=== PATIENT | female | born 1990 | race Hispanic/Latino ===

== ENCOUNTER 2024-06-20 23:50 | Emergency (ER) | payer SELFPAY ==
[2024-06-20 23:54] VITALS: BP 143/63; PULSE 146; RESP 24; TEMP 37.3; O2SAT 100; BMI 25.8
--- NOTE | 2024-06-20 23:56 | DI.RAD.S_ITS ---
PROCEDURE: XR SOFT TISSUE NECK INDICATIONS: swallowed something and feels stuck TECHNIQUE: 2 views of the neck were acquired. COMPARISON: None. FINDINGS: Airway: The airway appears patent. Soft tissues: Prevertebral soft tissues are normal in thickness. The epiglottis and aryepiglottic folds appear normal. No soft tissue gas. Bones: No suspicious bony lesions. Visualized cervical spine is normally aligned. IMPRESSION: No radiopaque foreign bodies peer No acute abnormality. Dictated by: Jules Plunkett M.D. on 06/21/2024 at 0:26 Approved by: Jules Plunkett M.D. on 06/21/2024 at 0:26
--- NOTE | 2024-06-20 23:59 | ED.SOB ---
HPI - SOB/Dyspnea General Chief Complaint: Skin/Abscess/Foreign Body Stated Complaint: something stuck in throat Time Seen by Provider: 06/20/24 23:56 Source: old records reviewed Mode of arrival: Family Vehicle Limitations: no limitations History of Present Illness HPI Narrative: 33-year-old female with no reported medical issues presents with complaint having something stuck in her throat patient states she was eating potato chips leaning forward she felt like it got stuck and that it is stuck sideways. Patient states that she has not had any improvement but it has not worsening over the past 30 minutes. She states no changes to voice, states she has not hoarse. No stridor. She appears quite uncomfortable. She has not had any vomiting. She states she has not had similar symptoms in the past. She does not have any other rash skin changes or other changes that she is appreciated. She states she ate and drank and was able to do that without issue. She states no daily medications, states she had prior tonsils surgeries in the past. Denies any drug allergies but states she was very sensitive to narcotics. She does use a dab pen for tobacco, denies any regular alcohol, denies any recreational drugs. Related Data Allergies Allergy/AdvReac Type Severity Reaction Status Date / Time No Known Drug Allergies Allergy Verified 06/21/24 00:08 Review of Systems Review of Systems ROS Unobtainable: All systems reviewed & are unremarkable except as noted in HPI and below Patient History Social History Smoking Status: Current every day smoker Exam Narrative Exam Narrative: GEN: Well nourished female in moderate distress. HEENT: Atraumatic, pupils are equal round reactive to light, extraocular movements are intact, nares are clear, TMs are clear with no fluid, there is no conjunctival pallor. Throat is clear without any exudates, erythema, tonsillar enlargement or uvular deviation, patient appears uncomfortable, does have some retractions of the SCM but is able to speak in full sentences. No stridor, patient is found and a little hoarse to myself but she states this is her normal voice. No drooling, patient is able to tolerate secretions. No swelling of oropharynx. HEART: Regular rate and rhythm without murmur, clicks, rubs. Pulses are equal in upper and lower extremities LUNGS:Lungs clear to auscultation, no wheezes, rales, crackles, chest moves symmetrically ABD:bowel sounds normal, soft, non-tender, no guarding, rebound, rigidity, no masses noted, no hepatosplenomegaly MSCL: Non-tender, full range of motion, normal gait NEURO:CN 2-12 intact, sensation normal. SKIN: Rash, erythema, no hives. Initial Vital Signs Initial Vital Signs: Vital Signs Temperature 99.1 F 06/20/24 23:54 Pulse Rate 146 H 06/20/24 23:54 Respiratory Rate 24 06/20/24 23:54 Blood Pressure 143/63 H 06/20/24 23:54 Pulse Oximetry 100 06/20/24 23:54 Oxygen Delivery Method Room Air 06/20/24 23:54 Course Orders Ordered: ED Orders 06/20/24 23:56 XR soft tissue neck Stat Discontinued Medications Lidocaine HCl (Lidocaine 2% Inj Sdv 5ml) 5 ml INH NOW ONE Stop: 06/21/24 00:01 Last Admin: 06/21/24 00:52 Dose: 5 ml Documented By: THELMA Vital Signs Vital signs: Vital Signs - 8 hr 06/20/24 23:54 06/21/24 00:11 06/21/24 01:28 Temperature 99.1 F 98.0 F Pulse Rate 146 H 98 H 81 Respiratory Rate 24 20 20 Blood Pressure 143/63 H 142/81 H Pulse Oximetry 100 100 100 Oxygen Delivery Method Room Air Room Air Room Air Fraction of Inspired Oxygen 21 MDM - SOB/Dyspnea Imaging Data soft tissue neck: Radiologist's Impression: Nallely Cowan??33??F??1990 ? Allergy/Adv: No Known Drug Allergies (More??) Close Soft Tissue Neck X-Ray (Signed) Jules Plunkett - 06/20/24 Launch?[address] [address] XRay Report Signed Patient: Nallely Cowan MR#: [id number] : 1990 Acct:[id number] Age/Sex: 33 / F Date of Service: 06/20/24 Loc: ED Accession Number: [id number] Procedure: XR soft tissue neck Ordering Provider: Mank,Arpita C D.O. PROCEDURE: XR SOFT TISSUE NECK INDICATIONS: swallowed something and feels stuck TECHNIQUE: 2 views of the neck were acquired. COMPARISON: None. FINDINGS: Airway: The airway appears patent. Soft tissues: Prevertebral soft tissues are normal in thickness. The epiglottis and aryepiglottic folds appear normal. No soft tissue gas. Bones: No suspicious bony lesions. Visualized cervical spine is normally aligned. IMPRESSION: No radiopaque foreign bodies peer No acute abnormality. Dictated by: Jules Plunkett M.D. on 06/21/2024 at 0:26 Approved by: Jules Plunkett M.D. on 06/21/2024 at 0:26 MDM Narrative Medical decision making narrative: 33-year-old female states she feels like something got stuck in her throat she states it feels like it is stuck sideways she was requesting Heimlich but is has a patent airway is able to talk, is able to handle her secretions. She states it has not been worsening since it started it started while eating potato chips and she feels like 1 is stuck. Patient is refusing an IV. We will try 1 single dose of nebulized lidocaine. Patient states it is painful. Patient had 1 dose of nebulized lidocaine, states that does help her symptoms. Patient asked if she can do some nasal saline. She did this she states that is seems like it was very helpful. She feels much more comfortable she was able to lay flat on the bed. Soft tissue neck x-ray shows no acute change. On rechecked patient continues to feel much and feels comfortable her breathing has normalized, she does not have any stridor, no wheezing no changes to voice, no difficulty with swallowing secretions she was able to lay flat and on her side and even sit up bent over without any issues. Discharge Plan Departure Patient Disposition: Home Clinical Impression: Globus sensation Activity Restrictions/Additional Instructions: Please follow up for recheck as needed. You may have some irritation in your throat over the next day or so this should continue to improve. If you have new or worsening difficulty breathing, changes to your voice, hoarseness, stridor or high-pitched wheezing, inability to swallow your saliva or secretions or other new or concerning changes please return to the emergency department. Stand Alone Forms: Patient Portal/API
[2024-06-21 00:11] VITALS: PULSE 98; RESP 20; O2SAT 100
[2024-06-21] MEDS: LIDOCAINE 2% INJ SDV 5ML 5 ML INH (00:52)
[2024-06-21 01:28] VITALS: BP 142/81; PULSE 81; RESP 20; TEMP 36.7; O2SAT 100
== END 2024-06-21 01:31 | disposition home or self-care (01) ==
PROVIDERS: Emergency Provider Emergency Medicine
DX: R09.A2 Foreign body sensation, throat (principal)
CPT/HCPCS: 70360; 93010; 94640; 99283

== ENCOUNTER 2024-06-21 13:34 | Emergency (ER) | payer SELFPAY ==
[2024-06-21] VITALS (14 sets, daily range): BP systolic 103–132; BP diastolic 55–80; PULSE 51–127; RESP 12–36; TEMP 37.7; O2SAT 85–100
--- NOTE | 2024-06-21 13:41 | EKG_ITS ---
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
--- NOTE | 2024-06-21 13:41 | DI.RAD.S_ITS ---
PROCEDURE: XR CHEST 1V INDICATIONS: SHORTNESS OF BREATH TECHNIQUE: One view of the chest was acquired. COMPARISON: None. FINDINGS: Surgical changes and devices: None. Lungs and pleura: Lungs are clear. No pleural effusions or pneumothorax. Mediastinum: Mediastinal contours appear normal. Heart size is normal. Bones and chest wall: No suspicious bony lesions. Overlying soft tissues appear unremarkable. IMPRESSION: No acute cardiopulmonary abnormality is seen. Dictated by: Jose Givens M.D. on 06/21/2024 at 14:03 Approved by: Jose Givens M.D. on 06/21/2024 at 14:03
--- NOTE | 2024-06-21 13:44 | ED_ITS ---
HPI - SOB/Dyspnea General Chief Complaint: Upper Respiratory Symptoms Stated Complaint: can't breathe Time Seen by Provider: 06/21/24 13:40 History of Present Illness HPI Narrative: 33-year-old female seen here last night with throat foreign body sensation, no specific diagnosis recalled by patient, says that she ?can not breathe? seemed to be in respiratory distress, no swelling to eyelids or tongue or face, no itching or rash or hives, no wheezing, no chest pain. Last night possible concern about throat pain related to corn chip FB sensation. Related Data Allergies Allergy/AdvReac Type Severity Reaction Status Date / Time No Known Drug Allergies Allergy Verified 06/21/24 13:49 Review of Systems Review of Systems Narrative: see HPI Patient History Social History Smoking Status: Current every day smoker Smoking Status: Current every day smoker tobacco type: vaping alcohol intake frequency: other Substance Use Type: does not use Exam Narrative Exam Narrative: GENERAL: Well-developed patient, in respiratory distress with stridor. HEAD: Atraumatic. Normocephalic. Tends to turn her neck to the right side, but when directly asked questions is able to move in the midline of the left side with no problems, returns to right-sided position when not directly examined or queried. EYES: Pupils equal round and reactive. Extraocular motions intact. No scleral icterus. No injection or drainage. ENT: Nose without bleeding, purulent drainage. Throat without erythema, tonsillar hypertrophy or exudate. Airway patent. NECK: Trachea midline. Non tender. No anterior neck lesions. Moves neck side to side, no drool, no trismus. CARDIOVASCULAR: Regular rate and rhythm without murmurs, gallops, or rubs. RESPIRATORY: Some stridorous breathing, respiratory distress. Clear to auscultation. Breath sounds equal bilaterally. No wheezes, rales, or rhonchi. GASTROINTESTINAL: Abdomen soft, non-tender, nondistended. EXTREMITIES: No edema or joint tenderness. BACK: Nontender without deformity or crepitance. No flank tenderness. NEURO: AOx3. Motor functions grossly nonfocal SKIN: No rash or erythema of visible areas Initial Vital Signs Initial Vital Signs: Vital Signs Pulse Rate 127 H 06/21/24 13:42 Pulse Oximetry 97 06/21/24 13:42 Course Orders Ordered: ED Orders 06/21/24 13:41 XR chest 1V Stat Complete Blood Count AUTO DIFF Stat Comprehensive Metabolic Panel Stat Lipase Stat Troponin & CK Cardiac Panel Stat EKG-12 Lead Stat 06/21/24 14:25 Urine Culture Stat Urine Microscopic Stat urine tox [Urine Drug Screen, Rapid] Stat Discontinued Medications Albuterol (Albuterol 2.5 Mg/3 Ml Neb (Adult)) 2.5 mg INH NOW ONE Stop: 06/21/24 13:42 Last Admin: 06/21/24 14:51 Dose: Not Given Documented By: WILVER Aspirin (Aspirin 81 Mg Chew Tab) 324 mg PO NOW ONE Stop: 06/21/24 13:41 Last Admin: 06/21/24 14:51 Dose: Not Given Documented By: WILVER Dexamethasone (Dexamethasone 10 Mg/Ml Vial) 10 mg IM NOW ONE Stop: 06/21/24 14:12 Last Admin: 06/21/24 14:56 Dose: Not Given Documented By: WILVER Epinephrine (Racepinephrine 0.5 Ml Neb) 0.5 ml INH NOW ONE Stop: 06/21/24 14:12 Last Admin: 06/21/24 14:57 Dose: Not Given Documented By: WILVER Sodium Chloride (Normal Saline 0.9%) 1,000 mls @ 150 mls/hr IV CONT NASIMA Last Admin: 06/21/24 14:52 Dose: Not Given Documented By: WILVER Midazolam HCl (Midazolam 5 Mg/Ml Vial) 5 mg IM NOW ONE Stop: 06/21/24 13:50 Last Admin: 06/21/24 14:00 Dose: 5 mg Documented By: WILVER Vital Signs Vital signs: Vital Signs - 8 hr 06/21/24 13:42 06/21/24 13:44 06/21/24 13:44 Temperature Pulse Rate 127 H 92 H Respiratory Rate 26 H Blood Pressure 117/55 L Pulse Oximetry 97 100 Oxygen Delivery Method 06/21/24 13:45 06/21/24 14:00 06/21/24 14:01 Temperature 99.8 F H Pulse Rate 122 H 88 84 Respiratory Rate 28 H 36 H 17 Blood Pressure 117/55 L Pulse Oximetry 99 100 100 Oxygen Delivery Method Room Air 06/21/24 14:01 06/21/24 14:27 06/21/24 14:27 Temperature Pulse Rate 81 Respiratory Rate 16 Blood Pressure 110/80 120/59 L Pulse Oximetry 85 L Oxygen Delivery Method 06/21/24 14:30 06/21/24 14:30 06/21/24 15:00 Temperature Pulse Rate 51 L Respiratory Rate 16 Blood Pressure 122/65 106/62 Pulse Oximetry 100 Oxygen Delivery Method 06/21/24 15:00 06/21/24 15:30 06/21/24 15:31 Temperature Pulse Rate 67 73 Respiratory Rate 17 17 Blood Pressure 132/74 Pulse Oximetry 100 100 Oxygen Delivery Method Room Air 06/21/24 15:31 06/21/24 16:00 06/21/24 16:00 Temperature Pulse Rate 70 63 Respiratory Rate 13 12 Blood Pressure 116/62 Pulse Oximetry 100 100 Oxygen Delivery Method Room Air 06/21/24 16:30 06/21/24 16:30 06/21/24 17:00 Temperature Pulse Rate 60 Respiratory Rate 16 Blood Pressure 126/60 103/55 L Pulse Oximetry 100 Oxygen Delivery Method 06/21/24 17:00 06/21/24 17:30 06/21/24 17:30 Temperature Pulse Rate 61 76 Respiratory Rate 15 17 Blood Pressure 108/62 Pulse Oximetry 100 100 Oxygen Delivery Method MDM - SOB/Dyspnea Lab Data Attestation: I reviewed the patient's lab results. Labs: Lab Results 06/21/24 Range/Units 14:25 Urine RBC None seen (0-5/HPF) Urine WBC 0-1/hpf (0-5/HPF) Ur Squamous Epith Cells 0-1 /hpf (0-5/HPF) Urine Bacteria None seen (None) Ur Culture Indicated? Specimen cultured Vol Urine Centrifuged 10ml (spun) U Opiates 300ng/mL cut Negative (Negative) Ur Oxycodone Screen Negative (Negative) Urine Methadone Screen Negative (Negative) Ur Barbiturates Screen Negative (Negative) U Tricyclic Antidepress Negative (Negative) Ur Phencyclidine Scrn Negative (Negative) Ur Amphetamines Screen Positive H (Negative) U Methamphetamines Scrn Positive H (Negative) Ur MDMA Scrn (Ecstasy) Negative (Negative) U Benzodiazepines Scrn Negative (Negative) Urine Cocaine Screen Negative (Negative) U Marijuana (THC) Screen Positive H (Negative) Urine pH Normal (Normal) Urine Specific [place] Normal (Normal) Ur Creatinine Normal (Normal) Point of Care Testing Test Results Negative Urine Dip Bedside Urine Glucose Negative Bedside Urine Bilirubin - Negative Bedside Urine Ketone - Negative Urine Specific [place] 1.015 Bedside Urine Occult Blood - Negative Bedside Urine pH 6.0 Bedside Urine Protein - Negative Bedside Urine Urobilinogen - Negative Bedside Urine Nitrite - Negative Bedside Urine Leukocytes + 70 Esterase Imaging Data Chest x-ray: Radiologist's Impression: [address] [address] XRay Report Signed Patient: Nallely Cowan MR#: [id number] : 1990 Acct:[id number] Age/Sex: 33 / F Date of Service: 06/21/24 Loc: ED Accession Number: [id number] Procedure: XR chest 1V Ordering Provider: Carmine Cheney MD PROCEDURE: XR CHEST 1V INDICATIONS: SHORTNESS OF BREATH TECHNIQUE: One view of the chest was acquired. COMPARISON: None. FINDINGS: Surgical changes and devices: None. Lungs and pleura: Lungs are clear. No pleural effusions or pneumothorax. Mediastinum: Mediastinal contours appear normal. Heart size is normal. Bones and chest wall: No suspicious bony lesions. Overlying soft tissues appear unremarkable. IMPRESSION: No acute cardiopulmonary abnormality is seen. Dictated by: Jose Givens M.D. on 06/21/2024 at 14:03 Approved by: Jose Givens M.D. on 06/21/2024 at 14:03 ECG Data Attestation: I personally reviewed and interpreted this ECG as follows: Interpretation: Normal sinus rhythm with rate of 69, no obvious ST segment elevation or depression changes. MS 170, QRS 88, QTC 415. MDM Narrative Medical decision making narrative: Shortness of breath, some kind of left-sided neck discomfort, seems to be able to move her neck [id number], but tends to hold neck in right lateral position. Appears anxious. Stridor but seems volitional. Here last night, unclear diagnosis, we will check records. Records from last night, left throat foreign body sensation after eating chips, soft tissue neck x-ray series unrevealing, patient seemed to improve, discharged home. Chest x-ray now this visit unremarkable. Consider psychogenic, vocal cord dysfunction, other. Patient is refusing IV at this time. IM Versed. IM Decadron. SVN Vaponefrine Patient sleeping, does not seem to be in any respiratory distress after IM Versed. Will hold Decadron and Vaponefrin. Urine drug screen positive for amphetamine, methamphetamine, cannabis. 1645, patient still sleeping, no stridor audible, controlling airway well. 1750, now awake, alert, no distress, patient able to take oral fluids well, no stridor, moves neck well. Patient relays that she has had prior vocal cord surgery with warts past. Unclear if it is related any vocal cord dysfunction or vocal cord lesion, unclear if related to recent chip swallowing choking episode, or due to polysubstance abuse issues, or psychogenic. Tylenol as needed for sore throat symptoms for now. Consider follow up with Otolaryngology for possible flexible nasolaryngoscopy evaluation. Contact information for local otolaryngology provider provided. Patient informed about urine tox results, advised to avoid amphetamine/methamphetamine substances. Home with family, return precautions discussed Discharge Plan Departure Patient Disposition: Home Clinical Impression: Stridor, Polysubstance abuse Activity Restrictions/Additional Instructions: Sore throat symptoms and stridor upper respiratory abnormal breathing sounds, respiratory distress, agitation. Recent evaluation last night with similar symptoms, x-rays study soft tissue neck unremarkable at that visit. You refused IV placement and medications that route. Intramuscular dose of Versed given. We were considering steroids and breathing treatments but you seemed to respond quickly to the Versed, no longer having respiratory distress, then sleeping. You were observed for a period of time. You woke up without stridor. Urine tox screen was positive for methamphetamine and for amphetamine, as well as cannabis. Though substances might be involved with some of your vocal cord issue, unclear. You mentioned that you had prior warts on your vocal cords, remote surgery years ago, consider otolaryngology follow up for direct laryngoscopy evaluation of your cords. Regarding your sore throat symptoms, consider clear liquid diet, Tylenol as needed. Follow up with Otolaryngology specialist. Return to this/nearest emergency department for any change worsening symptoms or any concerns prior Referrals: Mc Gustafson MD [Physician] - Stand Alone Forms: Patient Portal/API
[2024-06-21] MEDS: MIDAZOLAM 5 MG/ML VIAL IM (14:00)
--- NOTE | 2024-06-21 14:02 | PC.NURSE ---
RT evaluation done by Rt Jaiden
--- NOTE | 2024-06-21 14:04 | PC.NURSE ---
states she has a chip stuck in her throat from last night. refusing iv access. Dr. britton aware
[2024-06-21 14:51] LABS: Ur Creatinine Normal (Normal); Ur Specific Gravity Normal (Normal); Urine Cocaine Negative (Negative); Urine THC Positive (Negative); Urine pH Normal (Normal)
[2024-06-21 14:52] LABS: Urine Amphetamines Positive (Negative); Urine Barbiturates Negative (Negative); Urine Benzodiazepines Negative (Negative); Urine MDMA Negative (Negative); Urine Methadone Negative (Negative); Urine Methamphetamines Positive (Negative); Urine Opiates Negative (Negative); Urine Oxycodone Negative (Negative); Urine Phencyclidine Negative (Negative); Urine Tricyclic Antidepressant Negative (Negative)
[2024-06-21 16:01] LABS: Bacteria Urine None Seen; Culture Indicated Urine Specimen Cultured; RBC Urine None Seen (0-5/HPF); Squamous Epithelial Cell Urine 0-1 /HPF (0-5/HPF); Urine Volume 10mL (spun); WBC Urine 0-1/HPF (0-5/HPF)
--- NOTE | 2024-06-21 16:20 | PC.NURSE ---
Pt reports throat feels sore and tight and describes soreness as a 2/10 on pain scale. She is sitting upright and answers questions in full sentences. She is A&O and does not appear in any acute respiratory distress. Provider made aware.
== END 2024-06-21 18:07 | disposition home or self-care (01) ==
PROVIDERS: Emergency Provider Emergency Medicine
DX: R06.1 Stridor (principal); F19.10 Other psychoactive substance abuse, uncomplicated; R06.02 Shortness of breath; I49.8 Other specified cardiac arrhythmias
CPT/HCPCS: 71045; 80305; 81003; 81015; 81025; 87086; 93005; 96372; 99283; 99284; J2250